=== PATIENT | male | born 1990 | race Caucasian/White ===

== ENCOUNTER 2017-10-31 20:21 | Emergency (ER) | payer BC ==
[~2017-10-31] VITALS: Ht 170.2 cm; Wt 59.0 kg
[2017-10-31] MEDS ORDERED: NKM (20:25)
[2017-10-31 20:47] VITALS: BP 104/57
[2017-10-31] MEDS ORDERED: Norco 5mg/325mg tab ORAL ONE (21:15)
[2017-10-31] MEDS ORDERED: IBUPROFEN600 MG ORAL (21:45)
[2017-10-31] MEDS ORDERED: NORCO 5-325 TA1 EACH ORAL (21:45)
[2017-10-31 22:03] VITALS: BP 108/56
--- NOTE | 2017-10-31 22:06 | Emergency Room Report ---
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 The patient injured his finger while playing basketball. Patient denies any distal numbness. Injury occurred just prior to arrival. Allergies: Coded Allergies: No Known Allergies (Unverified , 10/31/17) Patient History Past Medical History: see triage record Reviewed Nursing Documentation: PMH: Agreed; PSxH: Agreed Nursing Documentation-PMH Past Medical History: No Stated History Hx Gastrointestinal Problems: Yes - APPENDECTOMY Review of Systems All Other Systems: negative except mentioned in HPI Physical Exam Vital Signs Date Time Temp Pulse Resp B/P (MAP) Pulse Ox O2 Delivery O2 Flow Rate FiO2 10/31/17 20:25 98.4 120 16 104/57 98 Room Air 98.4 General Appearance: well appearing, no apparent distress, alert, GCS 15 Head: normocephalic, atraumatic ENT: hearing grossly normal, normal voice Neck: normal inspection Respiratory: normal inspection, no respiratory distress, speaking full sentences Musculoskeletal: decreased range of mation, swelling - left ring finger, malrotated swelling Neurologic: normal inspection, alert, oriented x3 Psychiatric: normal inspection, judgement/insight normal, mood/affect normal Skin: other - swelling no laceration Medical Decision Making Diagnostic Impression: Primary Impression: Fracture of proximal phalanx of digit of left hand ER Course The patient presented for finger pain. Differential diagnosis included was not limited to dislocation, fracture, sprain, contusion. The x-ray imaging of the left hand 3 views interpreted by me showed oblique fracture of the proximal phalanx of the ring finger. With slight angulation. The patient was discussed with Dr. Leann Espinoza for hand consult. The patient seen in the emergency department by Dr. Espinoza and per patient's wishes surgery will be deferred. The patient was advised to follow up with Dr. Espinoza tomorrow. Last Vital Signs Date Time Temp Pulse Resp B/P (MAP) Pulse Ox O2 Delivery O2 Flow Rate FiO2 10/31/17 20:47 98.4 120 16 104/57 98 Room Air 98.4 Status: improved Disposition: HOME, SELF-CARE Condition: Stable Scripts Ibuprofen* (MOTRIN*) 600 Mg Tablet 600 MG ORAL Q8H PRN for For Pain, #30 TAB 0 Refills Prov: Wade Pretty MD 10/31/17 Referrals: LEANN ESPINOZA M.D. Patient Instructions: Finger Fracture Wade Pretty MD October 31, 2017 22:06
--- NOTE | 2017-11-01 10:28 | Diagnostic Imaging Report ---
Indication: pain. Left hand pain Findings: 3 views of the left hand were obtained. Acute nondisplaced fracture involving the fourth proximal phalange demonstrated. The fracture is oblique and involves the mid to lower aspect of the bone. There may be intra-articular involvement at the MCP joint which is questionable. IMPRESSION: Acute fracture fourth proximal phalange
--- NOTE | 2017-11-01 17:46 | Consultation ---
DATE OF CONSULTATION: 10/31/2017 REASON FOR CONSULTATION: Left ring finger fracture. HISTORY OF PRESENT ILLNESS: The patient is a 26-year-old male, who was playing basketball when he jammed his left finger by another player, who was reaching for the ball. Subsequently, he had deformity and swelling of his left ring finger. He was brought to [facility] for evaluation and treatment. After x-ray and physical exam were performed by the ER physician, plastic surgery consult was called due to the nature of his injury. He was diagnosed with oblique fracture of the displaced fracture of the proximal phalanx. PAST MEDICAL HISTORY: None. PAST SURGICAL HISTORY: Appendectomy. CURRENT MEDICATIONS: None. ALLERGIES TO MEDICATIONS: None. REVIEW OF SYSTEMS: Notable only for the pain, swelling, discomfort, and gross deformity of the left ring finger. PHYSICAL EXAMINATION: GENERAL: The patient is comfortable, resting on the stretcher, in no acute distress. He is hemodynamically stable. HEENT: Head is normocephalic and atraumatic. Pupils equal, round, and reactive to light. Extraocular motion intact and symmetrical bilaterally. External ears, nose, mouth, and oral cavity all appear normal. NECK: Neck is supple. No masses. Trachea is midline. No gross deformities. CHEST: Clear to auscultation. No wheezes or crackles. CARDIOVASCULAR: Normal sinus rhythm. Normal S1, S2. ABDOMEN: Soft, nontender, and nondistended. No rebound tenderness. No guarding or rebound. Normoactive bowel sounds. EXTREMITIES: Full range of motion. No gross deformities except for the left ring finger. There is swelling, pain, and tenderness to palpation and appears grossly rotated. It was different in appearance than the other fingers. Significant tenderness, swelling, and pain in the proximal area of the proximal phalanx. X-RAYS: X-rays performed during this visit, there is an oblique fracture of the shaft of the left ring finger proximal phalanx that is [id number] displaced. ASSESSMENT AND PLAN: The patient is a 26-year-old male, who has oblique displaced fracture of the left ring proximal phalanx that requires reduction and fixation due to the nature and instability of the fracture. Discussion was held with the patient regarding performing surgery tonight and then seen at the hospital if he has any appropriate hand fracture sites versus scheduling electively as an outpatient. The patient needs time to process and come to terms with the need for surgery and fixation of this fracture. He would like to be splinted and rescheduled for fixation as an open reduction internal fixation as an outpatient. Options were discussed with him with regards to a cross K-wire percutaneous wire fixation and immobilizing the segments versus small plate. Further discussions will be made. He will be splinted, discharged, and follow up with me in my office and we will submit to his insurance for repair of his left proximal phalanx fracture and schedule as an elected outpatient procedure. Magdy Kimball M.D. DR: KATHIA JOB#: [id number] CC: IRA
== END 2017-10-31 22:03 | disposition home or self-care (01) ==
LOC: EMR 20:40
DX: S62.615A Displaced fracture of proximal phalanx of left ring finger, initial encounter for closed fracture (principal); Y93.67 Activity, basketball; Y92.9 Unspecified place or not applicable
CPT/HCPCS: 29130; 99283